=== PATIENT | female | born 2000 | race Caucasian/White ===

== ENCOUNTER → 2020-08-13 09:09 | Outpatient (BNVA) | payer MEDICARE, SELFPAY | PROVIDERS: Visit Provider Obstetrics & Gynecology | DX: Z32.01 Encounter for pregnancy test, result positive (principal) | CPT/HCPCS: 81025 ==

== ENCOUNTER → 2020-08-14 09:58 | Outpatient (BNVA) | payer MEDICARE, SELFPAY | PROVIDERS: Visit Provider Obstetrics & Gynecology | DX: O99.321 Drug use complicating pregnancy, first trimester (principal); F12.90 Cannabis use, unspecified, uncomplicated; A74.9 Chlamydial infection, unspecified; O34.01 Maternal care for unspecified congenital malformation of uterus, first trimester; O34.211 Maternal care for low transverse scar from previous cesarean delivery; O99.341 Other mental disorders complicating pregnancy, first trimester; F41.9 Anxiety disorder, unspecified; F32.9 Major depressive disorder, single episode, unspecified; O99.331 Smoking (tobacco) complicating pregnancy, first trimester; F17.210 Nicotine dependence, cigarettes, uncomplicated; O99.311 Alcohol use complicating pregnancy, first trimester; Z3A.11 11 weeks gestation of pregnancy | CPT/HCPCS: 80053; 84315; 87491; 87591 ==

== ENCOUNTER → 2020-08-16 16:05 | Outpatient (BNVA) | payer MEDICARE, SELFPAY | PROVIDERS: Visit Provider Obstetrics & Gynecology | DX: O99.320 Drug use complicating pregnancy, unspecified trimester (principal); O34.01 Maternal care for unspecified congenital malformation of uterus, first trimester; O34.211 Maternal care for low transverse scar from previous cesarean delivery | CPT/HCPCS: 80307 ==

== ENCOUNTER → 2020-08-27 14:23 | Outpatient (BNVA) | payer MEDICARE, MEDICAID, SELFPAY | PROVIDERS: Visit Provider Obstetrics & Gynecology | DX: O09.90 Supervision of high risk pregnancy, unspecified, unspecified trimester; O99.340 Other mental disorders complicating pregnancy, unspecified trimester; F32.9 Major depressive disorder, single episode, unspecified; O34.211 Maternal care for low transverse scar from previous cesarean delivery; O34.01 Maternal care for unspecified congenital malformation of uterus, first trimester; O98.811 Other maternal infectious and parasitic diseases complicating pregnancy, first trimester; A74.9 Chlamydial infection, unspecified; O99.321 Drug use complicating pregnancy, first trimester; Q51.3 Bicornate uterus; O09.891 Supervision of other high risk pregnancies, first trimester; Z67.91 Unspecified blood type, Rh negative; F12.90 Cannabis use, unspecified, uncomplicated; F10.99 Alcohol use, unspecified with unspecified alcohol-induced disorder; Z3A.13 13 weeks gestation of pregnancy | CPT/HCPCS: 84315; 85027; 86592; 86762; 86803; 86850; 86900; 87340; 87806; 88175 ==

== ENCOUNTER → 2020-10-15 14:46 | Outpatient (BNVA) | payer MEDICARE, MEDICAID, SELFPAY | PROVIDERS: Visit Provider Nurse Practitioner Women's Health | DX: O99.340 Other mental disorders complicating pregnancy, unspecified trimester (principal); O99.320 Drug use complicating pregnancy, unspecified trimester; F32.9 Major depressive disorder, single episode, unspecified; O34.219 Maternal care for unspecified type scar from previous cesarean delivery; O34.01 Maternal care for unspecified congenital malformation of uterus, first trimester; O98.811 Other maternal infectious and parasitic diseases complicating pregnancy, first trimester; A74.9 Chlamydial infection, unspecified; F41.9 Anxiety disorder, unspecified; O26.899 Other specified pregnancy related conditions, unspecified trimester; Z67.91 Unspecified blood type, Rh negative; F12.90 Cannabis use, unspecified, uncomplicated | CPT/HCPCS: 80307; 84315 ==

== ENCOUNTER → 2022-07-16 12:42 | Day surgery (SDC) | payer MEDICARE, MEDICAID, SELFPAY ==
[2022-07-16 14:04] VITALS: BP 136/70; PULSE 85; RESP 18; TEMP 36.4; O2SAT 99
[2022-07-16 14:05] VITALS: BP 136/70; PULSE 85; RESP 18; TEMP 36.4; O2SAT 99
== END ==
PROVIDERS: Visit Provider Family Medicine
DX: Z29.13 Encounter for prophylactic Rho(D) immune globulin (principal)
CPT/HCPCS: 36415; 36430; 86850; 86900; 90384; 96372

== ENCOUNTER 2022-07-29 14:09 | Outpatient (CLI) | payer MEDICARE, MEDICAID, SELFPAY ==
[2022-07-29] VITALS (37 sets, daily range): BP systolic 95–109; BP diastolic 51–59; PULSE 121–164; RESP 18; TEMP 38.1; O2SAT 83–100; BMI 29.0
[2022-07-29] MEDS: acetaminophen 500 mg Tablet 1000 MG PO (15:23)
[2022-07-29] MEDS: lactated ringers 1,000 ML 999 ML IV (15:24)
[2022-07-29 16:31] LABS: Influenza A by IFA Negative (Negative); Influenza B by IFA Negative (Negative); SARS Covid-2 Antigen Positive (Negative)
== END 2022-07-29 17:15 | disposition home or self-care (01) ==
LOC: OPOB 14:10 → OBGYN 14:11
PROVIDERS: Visit Provider Family Medicine
DX: O26.899 Other specified pregnancy related conditions, unspecified trimester (principal); Z3A.00 Weeks of gestation of pregnancy not specified; R06.02 Shortness of breath; R00.2 Palpitations
CPT/HCPCS: 59025; 87426; 87804; 99211

== ENCOUNTER 2022-09-29 04:55 | Inpatient (IN) | payer MEDICARE, MEDICAID, SELFPAY ==
[2022-09-29] VITALS (26 sets, daily range): BP systolic 91–134; BP diastolic 54–82; PULSE 58–99; RESP 17; TEMP 36.8–36.9; O2SAT 99–100; BMI 32.5
[2022-09-29] MEDS: lactated ringers 1,000 ML 999 ML IV (06:20)
[2022-09-29] MEDS: ceFAZolin 2,000 MG in sodium chloride 0.9% (plus) 50 ML 100 MG IV (06:23)
--- NOTE | 2022-09-29 06:23 | P.ANESASSM_ITS ---
Pre-Anesthetic Assessment Height/Weight: Height 1.63 m Weight 86.183 kg Pulse BP O2 Del Method 99 130/72 09/29/22 05:45 09/29/22 05:45 09/29/22 04:55 Preop Diagnosis: Operation Date: 09/29/22 07:00 Proposed Procedures p Section With Tubal(Not Applicable) - Sofía Gutiérrez MD Familial anesthetic complications: With patients first baby she required a unit of blood and baby was breech. No complications with second baby Was Beta Ed taken within 24 hours: N/A Was Clonidine taken within 24 hours: N/A Social Tobacco (Quit smoking 2 years ago. Smoked marijuana until 30 weeks ) and No alcohol Exam alert, oriented x 3, clear to auscultation bilaterally and regular rate & rhythm Airway Submandibular: within normal limits Cervical ROM: within normal limits Mallampati: Class III Dentition: chipped (Right upper chipped, missing lower right) History/ROS No significant history except as noted and No significant complaints Pulmonary None reported CV/HEM None reported Severe kidney infection 2 years ago Hepatic None reported GI Gastroesophageal Reflux Disease ( induced) Metabolic None reported Musc/skel None reported Neuropsych Anxiety, Depression and Neuropathy (Feet numbness at times) Anesthetic Plan ASA status: 2 Anesthesia: Anesthesia Evaluation, General and Regional (specify below) Risk of > 500 ml blood loss (7ml/kg in children): Yes, adequate IV access and fluids planned Medications/Allergies Home Medications Medication Instructions Recorded Confirmed Last Taken Type prenat.vits,bratn,eno-izgf-educm 1 tab PO DAILY 08/14/20 07/16/22 Unknown History sertraline 50 mg tablet (Zoloft) 50 mg PO DAILY #30 tabs 10/15/20 07/16/22 Unknown Rx Allergies Allergy/AdvReac Type Severity Reaction Status Date / Time No Known Allergies Allergy Verified 07/16/22 14:01 [facility] Anesthesia Medical History Anxiety and depression Reports history of anxiety and depression in the past and has been on medication on and off in the past. Currently does not have anyone she follows with. Was taking trazodone and another mood stabilizer prior to the but does not remember the name. No pertinent past medical history Denies diabetes, asthma, hypertension, seizures, DVT/PE PCP: None Surgical History Status post delivery 2018---> primary delivery in [place]. Operative reports have been requested and received---primary low transverse delivery for breech presentation and IUGR. 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 2 layer closure without any extensions Status post myringotomy with tube placement of both ears 2005 Family History Grandfather Colon cancer maternal, diagnosed at age 69 Grandmother Diabetes maternal Hyperlipidemia maternal Hypertension maternal Heart disease maternal Family/Other Stroke maternal great grandfather Uterine cancer maternal great aunt Breast cancer great aunt Ovarian cancer maternal great aunt Denies family history of Thyroid condition Social History Smoking and tobacco status: current every day smoker cigarettes [ Other cigarette details: 3 cigarettes per day] Alcohol intake: never Female Reproductive History : 5 Data Anesthesia Cardiac Studies: No Data to Display
[2022-09-29 06:32] LABS: Basophils # 0.1 10^3/uL (0.0-0.1); Basophils % 0.7 %; Eosinophils # 0.2 10^3/uL (0.0-0.8); Eosinophils % 1.5 %; Hemoglobin 11.3 g/dL (11.5-15.3); Lymphocytes # 2.6 10^3/uL (0.8-4.8); Lymphocytes % 24.8 %; Mean Corpuscular HGB Conc 33.2 g/dL (30.0-36.0); Mean Corpuscular Hemoglobin 28.3 pg (28.0-34.0); Mean Corpuscular Volume 85.2 fl (81-99); Mean Platelet Volume 10.3 fL (7.4-10.4); Monocytes # 0.6 10^3/uL (0.2-0.9); Monocytes % 5.7 %; Neutrophils # 6.81 10^3/uL (1.8-7.7); Neutrophils % 65.9 %; Nucleated Red Blood Cells % 0 %; Platelet Count 222 10^3/cmm (130-400); Red Blood Count 3.99 10^6/uL (4.1-5.3); Red Cell Distribution Width 14.3 % (12.1-15.1); White Blood Count 10.3 10^3/uL (4.0-10.0)
[2022-09-29 06:42] LABS: Amphetamines Screen Urine Negative (Negative); Barbiturates Screen Urine Negative (Negative); Benzodiazepines Screen Urine Negative (Negative); Cocaine Screen Urine Negative (Negative); Opiate Screen Urine Negative (Negative); PCP Screen Urine Negative (Negative); THC Screen Urine Negative (Negative)
[2022-09-29] MEDS: famotidine 20 mg/2 mL INJ IVP (07:02)
[2022-09-29] MEDS: metoclopramide 5 mg/mL SDV 2 mL 10 MG IVP (07:02)
[2022-09-29] MEDS: citric acid-sodium citrate 30 mL UDC PO (07:02)
--- NOTE | 2022-09-29 07:09 | PM.OPHPUD ---
Labor & Delivery H&P Update Date of Procedure: September 29, 2022 Date H&P Performed: 08/27/22 Admission Diagnosis: IUP at 39 weeks 1d gestation Repeat section Desired permanent surgical sterilization Preop diagnosis: Planned procedure: Operation Date: 09/29/22 07:00 Proposed Procedures p Section With Tubal(Not Applicable) - Sofía Gutiérrez MD
--- NOTE | 2022-09-29 08:53 | P.OP_ITS ---
Operative Report Date of procedure: September 29, 2022 Pre-op diagnosis: IUP at 39 weeks 1 day gestation Repeat section Desired permanent surgical sterilization Procedure done: Low transverse section Via Pfannenstiel skin incision Bilateral tubal ligation Specimens removed/disposition: Vertex male weight 3025 g, 6 pounds 11 ounces, Apgars 9 and 9 Pathology: Segments of right and left fallopian tubes Surgeon: Sofía Gutiérrez MD Estimated blood loss (mL): 350 IV fluids (mL): 1,100 Urine output (mL): 100 Complications: None Procedure: After informed consent the patient was taken to the OR where spinal anesthesia was administered. She was prepped and draped in normal sterile fashion in dorsal supine position with a left lateral tilt. After adequate spinal anesthesia was verified a Pfannenstiel skin incision was made through her prior scar and carried through to the underlying layer of fascia sharply. The fascial incision was then extended laterally using the Mayos. The fascia was grasped with [place] clamps and the underlying rectus muscles were dissected off. The peritoneum was entered bluntly using a hemostat. The incision site was manually stretched. The bladder blade was inserted and the vesicouterine peritoneum was identified and entered sharply using the Metzenbaums. Bladder flap was then created digitally. Bladder blade was reinserted. Uterine incision was made in a transverse fashion in the lower uterine segment that was very thin. Amniotic rupture of membranes was performed sharply with clear fluid. The uterine incision was manually stretched. The infant was delivered head first with bulb suction of the mouth and nares at delivery. The cord was clamped and cut and the was handed to the waiting pediatric nurse. Cord blood was obtained. The uterus was palpated to be very heart-shaped and the placenta was delivered using fundal pressure. The uterus was then exteriorized from the abdomen and a dry sponge was used to clear the uterus of clots and debris. The uterine incision was then repaired using 0 chromic in a running locked fashion. A second layer of the same suture was used in an imbricating manner. There was excellent hemostasis. The left fallopian tube was grasped with a [place] and a proximal portion of the tube was ligated and excised. Specimen was sent to pathology. Tubal ostia were visualized. Cut portions of the tube were coagulated using the Bovie. The right fallopian tube was then grasped with a Presley and a proximal portion of the tube was ligated and excised. Tubal ostia were visualized. Segment of the tube was sent to pathology. Cut portions of the tube were coagulated using the Bovie. The uterus was then returned to the abdomen and irrigation was used to clear the gutters of clots and debris. The uterine incision was reinspected for hemostasis. The peritoneum was then reapproximated using 4-0 Vicryl in a running fashion. The fascia was then reapproximated using 0 Vicryl in a running fashion. Subcutaneous tissue was irrigated. The subcutaneous tissue was then reapproximated using 4-0 Vicryl. The skin was then reapproximated using 4-0 Vicryl on a Brett needle. Steri-Strips and a pressure bandage were applied and patient went to recovery in good condition Sponge instrument and needle counts were correct.
--- NOTE | 2022-09-29 13:13 | ANE.PACU2 ---
Inpatient post-anesthesia follow up: Airway intact: Yes Vital signs: Temperature 98.4 F Pulse Rate 73 Respiratory Rate 17 Blood Pressure 116/70 Pulse Oximetry 99 Oxygen Delivery Me thod Room Air Oxygen Flow Rate Fraction of Inspir ed Oxygen Hydration adequate: Yes Nausea and vomiting: No Pain level: 1 Mental status: Baseline
[2022-09-29] MEDS: dextrose 5%-lactated ringers 1,000 ML 125 ML IV (14:05)
[2022-09-29] MEDS: ketorolac 30 mg/mL INJ IVP (14:05)
[2022-09-29] MEDS: ondansetron 2 mg/ML SDV 2 mL 4 MG IVP (17:40)
[2022-09-29] MEDS: docusate sodium 100 mg Capsule PO (17:41)
[2022-09-29] MEDS: HYDROcodone-acetaminophen 5-325 mg Tablet PO (17:41)
[2022-09-30] MEDS: ketorolac 30 mg/mL INJ IVP ×2 (00:27→05:48)
[2022-09-30 01:30] LABS: Hematocrit 25.8 % (37.0-47.0); Hemoglobin 8.6 g/dL (11.5-15.3); Mean Corpuscular HGB Conc 33.3 g/dL (30.0-36.0); Mean Corpuscular Hemoglobin 28.9 pg (28.0-34.0); Mean Corpuscular Volume 86.6 fl (81-99); Mean Platelet Volume 10.4 fL (7.4-10.4); Platelet Count 168 10^3/cmm (130-400); Red Blood Count 2.98 10^6/uL (4.1-5.3); Red Cell Distribution Width 14.4 % (12.1-15.1); White Blood Count 10.2 10^3/uL (4.0-10.0)
[2022-09-30 03:14] VITALS: BP 100/58; PULSE 77; RESP 16; O2SAT 97
[2022-09-30] MEDS: prenatal vitamin Capsule 1 CAP PO (08:53)
[2022-09-30] MEDS: ferrous sulfate EC 325 mg Tablet PO ×2 (08:53→17:16)
[2022-09-30] MEDS: sertraline 50 mg Tablet PO (08:53)
[2022-09-30] MEDS: docusate sodium 100 mg Capsule PO ×2 (08:53→17:16)
[2022-09-30 12:00] VITALS: BP 124/76; PULSE 100; RESP 16; TEMP 36.6; O2SAT 100
[2022-09-30] MEDS: ondansetron 2 mg/ML SDV 2 mL 4 MG IVP (12:35)
--- NOTE | 2022-09-30 12:48 | PM.PN ---
Subjective Subjective: She has been doing well. She has been up and ambulating, passing flatus, has good pain control with oral medication. She just got a little bit nauseated and was given some Zofran. Vitals/I&O/Wt Last Vital Signs Temp 98.3 F 09/29/22 09:30 Pulse 77 09/30/22 03:14 Resp 16 09/30/22 03:14 BP 100/58 09/30/22 03:14 Pulse Ox 97 09/30/22 03:14 O2 Del Method 09/30/22 03:14 09/29/22 09/30/22 09/30/22 22:59 06:59 14:59 Output Total 800 / 1350 700 / 2049 Balance -800 / -1300 -700 / -2000 Weight last 48 hrs Weight 86.183 kg Physical Exam Narrative: Alert and oriented sitting up in bed, heart regular rate and rhythm, lungs clear to auscultation bilaterally, abdomen soft with appropriate postoperative tenderness, fundus is firm and U- 3, incision is clean dry and intact with Steri-Strips in place, extremities have trace edema no calf tenderness Urinary Catheter Management: Romero: Cath Placed During This Visit: yes Reason for Continuing Indwelling Catheter: Perioperative Use in Selected Surgeries Urinary Catheter Date of Insertion: 09/29/22 Urinary Catheter Time of Insertion: 07:48 Data : 09/29/22 23:00 A&P Assessment and plan (1) Status post repeat low transverse section: With bilateral tubal ligation. Patient is doing well. If she continues to do well then likely home tomorrow. Attestations Medical Necessity Statement*: Routine postoperative and care Coding Level of Care Code Acute Hand Coke Drawer for Chg Fwd Diagnoses Status post repeat low transverse section Z98.891
[2022-09-30] MEDS: ibuprofen 800 mg tablet PO ×2 (13:43→20:37)
[2022-09-30 16:00] VITALS: BP 122/69; PULSE 99; RESP 18; TEMP 36.7; O2SAT 99
[2022-09-30] MEDS: simethicone 80 mg Chew PO (21:15)
[2022-09-30 22:00] VITALS: BP 124/86; PULSE 72; RESP 18; TEMP 36.7; O2SAT 98
[2022-10-01 04:10] VITALS: BP 125/75; PULSE 105; RESP 18; TEMP 36.4; O2SAT 100
[2022-10-01] MEDS: HYDROcodone-acetaminophen 5-325 mg Tablet PO ×2 (04:30→12:26)
[2022-10-01] MEDS: ferrous sulfate EC 325 mg Tablet PO (07:58)
[2022-10-01] MEDS: simethicone 80 mg Chew PO (07:58)
[2022-10-01] MEDS: docusate sodium 100 mg Capsule PO (07:58)
[2022-10-01] MEDS: ibuprofen 800 mg tablet PO (07:59)
[2022-10-01] MEDS: prenatal vitamin Capsule 1 CAP PO (07:59)
--- NOTE | 2022-10-01 12:38 | PM.DCS ---
Discharge Providers Date of Admission: 09/29/22 04:55 Date of Discharge: October 01, 2022 Attending Provider at Admission: Sofía Gutiérrez MD Attending Provider at Discharge: Sofía Gutiérrez MD Diagnoses at Discharge Discharge Diagnosis (1) Status post repeat low transverse section: Status: Acute Reason for Visit Reason for Visit: GINGER 10-03-2022/IVP Hospital Course Hospital Course This is a 22-year-old G3 now P3 who is postop day #2 status post repeat section with bilateral tubal ligation. She has done well postoperatively. She is ambulating, tolerating a regular diet, passing flatus and has good pain control. Physical Exam Narrative: Alert and oriented, walking around the room, heart regular rate and rhythm, lungs clear to auscultation bilaterally, abdomen is soft with appropriate postoperative tenderness, incision is clean dry and intact with Steri-Strips in place, extremities have trace edema but no calf tenderness. Urinary Catheter Management: Romero: Cath Placed During This Visit: yes Reason for Continuing Indwelling Catheter: Perioperative Use in Selected Surgeries Urinary Catheter Date of Insertion: 09/29/22 Urinary Catheter Time of Insertion: 07:48 Discharge Data Studies Completed and Pending Completed Studies During Hospitalization Category Date Time Status Pathology: Surgical [PTH] Stat Pth 09/29/22 09:09 Completed Laboratory Results WBC 10.2 10^3/uL (4.0-10.0) H 09/29/22 23:00 RBC 2.98 10^6/uL (4.1-5.3) L 09/29/22 23:00 Hgb 8.6 g/dL (11.5-15.3) L 09/29/22 23:00 Hct 25.8 % (37.0-47.0) L 09/29/22 23:00 MCV 86.6 fl (81-99) 09/29/22 23:00 MCH 28.9 pg (28.0-34.0) 09/29/22 23:00 MCHC 33.3 g/dL (30.0-36.0) 09/29/22 23:00 RDW 14.4 % (12.1-15.1) 09/29/22 23:00 Plt Count 168 10^3/cmm (130-400) 09/29/22 23:00 MPV 10.4 fL (7.4-10.4) 09/29/22 23:00 Neut % (Auto) 65.9 % 09/29/22 06:08 Lymph % (Auto) 24.8 % 09/29/22 06:08 Meeker % (Auto) 5.7 % 09/29/22 06:08 Eos % (Auto) 1.5 % 09/29/22 06:08 Baso % (Auto) 0.7 % 09/29/22 06:08 Neut # (Auto) 6.81 10^3/uL (1.8-7.7) 09/29/22 06:08 Lymph # (Auto) 2.6 10^3/uL (0.8-4.8) 09/29/22 06:08 Meeker # (Auto) 0.6 10^3/uL (0.2-0.9) 09/29/22 06:08 Eos # (Auto) 0.2 10^3/uL (0.0-0.8) 09/29/22 06:08 Baso # (Auto) 0.1 10^3/uL (0.0-0.1) 09/29/22 06:08 Nucleated RBC % (auto) 0 % 09/29/22 06:08 Nucleated RBCs # 0.0 /100WBC 09/29/22 06:08 Urine Opiates Screen Negative ng/mL (Negative) 09/29/22 06:08 Ur Barbiturates Screen Negative ng/mL (Negative) 09/29/22 06:08 Ur Phencyclidine Scrn Negative ng/mL (Negative) 09/29/22 06:08 Ur Amphetamines Screen Negative ng/mL (Negative) 09/29/22 06:08 U Benzodiazepines Scrn Negative ng/mL (Negative) 09/29/22 06:08 Urine Cocaine Screen Negative ng/mL (Negative) 09/29/22 06:08 U Marijuana (THC) Screen Negative ng/mL (Negative) 09/29/22 06:08 Vitals Last Vital Signs Temp 97.6 F 10/01/22 04:10 Pulse 105 H 10/01/22 04:10 Resp 18 10/01/22 04:10 BP 125/75 10/01/22 04:10 Pulse Ox 100 10/01/22 04:10 O2 Del Method 10/01/22 04:10 Discharge Plan Discharge Patient Disposition: Home Condition: Stable Prescriptions: New ibuprofen 800 mg Tablet 800 mg PO TID PRN (Reason: Abdominal Discomfort) Qty: 40 0RF hydrocodone-acetaminophen 5-325 mg Tablet 1 - 2 tab PO Q4H PRN (Reason: Abdominal Pain) Qty: 10 0RF docusate sodium 100 mg Capsule 100 mg PO BID Qty: 60 0RF Continued prenat.vits,brant,wbr-wnpg-xhleo Tablet 1 tab PO DAILY sertraline [Zoloft] 50 mg tablet 50 mg PO DAILY Qty: 30 1RF Discharge Orders: Discharge Order (Routine); Ordered 10/01/22 Ordered By: Sofía Gutiérrez Referrals: Sofía Gutiérrez MD [Physician] - 1-3 days (Wednesday) Discharge Diet: Usual diet Discharge Activity: Limit activity as instructed Patient Instructions: Depression (DC), Bleeding (DC), Preeclampsia and Eclampsia After Delivery (GEN), Tubal Ligation (DC), Hemorrhage (DC), OB - Jorge/Marla, OB Discharge Report, OB Food/Drug Interaction Guide, OB Care at Home, Opioid Safety, OB Home Care Discharge Attestations Time Spent in Discharge Care*: less than 30 min Quality Metrics Clinical Quality Measures [ No reported AMI, CVA or VTE this stay] Coding Level of Care Code Acute Chg FW DC note Diagnoses Status post repeat low transverse section Z98.891
[2022-10-01 13:50] VITALS: BP 110/64; PULSE 79; RESP 15; TEMP 36.8; O2SAT 98
[2022-10-01 13:51] VITALS: BP 110/64; PULSE 79; RESP 15; TEMP 36.8; O2SAT 98
== END 2022-10-01 14:09 | disposition home or self-care (01) | DRG 785 ==
PROVIDERS: Admitting Provider Family Medicine; Visit Provider Family Medicine
PROC: 10D00Z1 Extraction of Products of Conception, Low, Open Approach (ICD-10-PCS; CPT 59514; principal; 2022-09-29 07:00)
DX: O34.211 Maternal care for low transverse scar from previous cesarean delivery (principal); Z3A.39 39 weeks gestation of pregnancy; Z37.0 Single live birth; O99.284 Endocrine, nutritional and metabolic diseases complicating childbirth; E03.9 Hypothyroidism, unspecified; Z30.2 Encounter for sterilization
CPT/HCPCS: 36415; 51702; 59025; 80306; 85025; 85027; 88302; 96374; 96376; 98960; J0690; J1885; J2274; J2370; J2405; J2765; J3010; J3490; J7030; J7120; J7121

== ENCOUNTER 2022-12-19 16:40 | Emergency (ER) | payer MEDICAID, SELFPAY ==
[2022-12-19 16:51] VITALS: BP 118/67; PULSE 130; RESP 18; TEMP 37.7; O2SAT 98
== END 2022-12-19 18:49 | disposition left against medical advice (07) ==
PROVIDERS: Emergency Provider Family Medicine; PCP Family Medicine Adult Medicine
DX: Z53.21 Procedure and treatment not carried out due to patient leaving prior to being seen by health care provider (principal)

== ENCOUNTER → 2024-10-18 13:02 | Outpatient (BNVA) | payer SELFPAY | PROVIDERS: PCP Nurse Practitioner Family; Visit Provider Nurse Practitioner Family | DX: K62.5 Hemorrhage of anus and rectum (principal); R11.0 Nausea; K21.9 Gastro-esophageal reflux disease without esophagitis; K59.00 Constipation, unspecified; R19.7 Diarrhea, unspecified | CPT/HCPCS: 80053; 84443; 85025 ==

== ENCOUNTER → 2024-10-24 12:52 | Outpatient (BNVA) | payer SELFPAY | PROVIDERS: PCP Nurse Practitioner Family; Visit Provider Nurse Practitioner Family | DX: K62.5 Hemorrhage of anus and rectum (principal) | CPT/HCPCS: 82274; 87045; 87427; 87449; 87493 ==

== ENCOUNTER → 2024-10-31 13:35 | Outpatient (BNVA) | payer SELFPAY | PROVIDERS: PCP Nurse Practitioner Family; Visit Provider Nurse Practitioner Family | DX: R71.8 Other abnormality of red blood cells (principal) | CPT/HCPCS: 83550 ==

== ENCOUNTER 2025-10-11 12:29 | Emergency (ER) | payer SELFPAY ==
--- OUTSIDE RECORDS SUMMARY | 2025-10-11 12:34 | XMS_ITS | Clinical Summary ---
Author Organization [employer] Address [address] [facility] Attn: Epic Prelude ADT JW DAN [id number] Care Team Providers Care Public Information Coordinator Name Role Phone Unavailable Primary Care Provider Unavailabl e Allergies No known active allergies Medications VIT-IRON FUM-FOLIC AC ORAL Take by mouth. Active bismuth subsalicylate (PEPTO-BISMOL) 262 mg Tablet, Chewable Take by mouth. Active acetaminophen (TYLENOL) 325 mg tablet Take 1,000 mg by mouth every 4 hours as needed. 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 No 12/17/2023 Comments Unknown Sex and Gender Information Value Date Recorded Sex Assigned at Not on file Legal Sex Female 8:21 PM HEMODIALYSIS RN Gender Identity Not on file Sexual Orientation Not on file Last Filed Vital Signs Vital Sign Reading Time Taken Comments Blood Pressure 117/73 12/17/2023 6:00 PM HEMODIALYSIS RN Pulse 85 12/17/2023 6:00 PM HEMODIALYSIS RN Temperature 36.8 C (98.3 F) 12/17/2023 5:26 PM HEMODIALYSIS RN Respiratory Rate 18 12/17/2023 6:00 PM HEMODIALYSIS RN Oxygen Saturation 100% 12/17/2023 6:00 PM HEMODIALYSIS RN Inhaled Oxygen Concentration - - Weight 84.3 kg (185 lb 12.8 oz) 12/17/2023 5:26 PM HEMODIALYSIS RN Height 162.6 cm (5' 4 ) 12/17/2023 5:26 PM HEMODIALYSIS RN Body Mass Index 31.89 12/17/2023 5:26 PM HEMODIALYSIS RN Plan of Treatment Health Maintenance Due Date Last Done Comments HPV VACCINES (1 - 3-dose series) 2014 DTAP/TDAP/TD VACCINES (1 - Tdap) 2018 HEPATITIS B VACCINES (1 of 3 - 19+ 3-dose series) 04/29 CERVICAL CANCER SCREENING 2020 HPV/Cotest (21-29) 2020 PAP SMEAR 2020 INFLUENZA VACCINE (#1) 2025 Insurance MEDICAID [place]
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
[2025-10-11 12:43] VITALS: BP 104/55; PULSE 72; RESP 18; TEMP 36.6; O2SAT 100
--- NOTE | 2025-10-11 13:19 | ED_ITS ---
HPI - Skin/Abscess/Foreign Bdy 2 General: Chief complaint: Skin/Abscess/Foreign Body Stated complaint: Rash Time Seen by Provider: 10/11/25 13:04 History of Present Illness: 25-year-old female without medical issue s presents ED with pruritus. Patient has itching maculopapular areas with complaints to upper back, left upper leg, mid torso, chest. Face is not involved. This started last p.m. Patient is unsure of what started this. Initially, she was not sure what to do, and took an amoxicillin that was leftover. This has not made it worse. She thinks she could have been exposed to poison kenneth however not sure. No fevers. Mainly the itching symptoms is her complaint with small patches of irritation. Associated symptoms: Deny chills, fever(s), nausea or vomiting Related Data Home Medications ?Medication ?Instructions ?Recorded ?Confirmed prenat.vits,brant,[id number] 1 tab PO DAILY 08/14/20 11/13/24 Previous Rx's ?Medication ?Instructions ?Recorded ibuprofen 800 mg tablet 800 mg PO TID PRN Abdominal 11/25/22 Discomfort #40 tabs loratadine 10 mg tablet 10 mg PO DAILY PRN nose/sinu s 11/25/22 congestion #30 tabs ibuprofen 800 mg tablet 800 mg PO Q8H pain 10 days # 30 tabs 08/17/23 ondansetron HCl 8 mg tablet 8 mg PO Q8H PRN nausea and 12/18/24 vomiting #30 tabs pantoprazole 40 mg tablet,delayed 40 mg PO DAILY #30 t abs 12/18/24 release (Protonix) sertraline 25 mg tablet 25 mg PO DAILY #30 tabs 11/30 0 clobetasol 0.05 % topical cream 1 applic topical BID 1 week #60 10/11/25 grams famotidine 20 mg tablet (Pepcid) 20 mg PO BID 2 weeks #28 tabs 10/11/25 methylprednisolone 4 mg tablets in See Rx Instructions PO .COMPLEX 10/11/25 a dose pack (Medrol (Cheikh)) #21 ea Allergies Allergy/AdvReac Type Severity Reaction Status Date / Time No Known Allergies Allergy Verified 12/18/24 15:06 Review of Systems 2 General: Reports: 10 or more systems reviewed and unremarkable except in HPI and below Const: Denies: fever(s), chills, body aches or change in appetite Eyes: Denies: change in vision, eye discharge or eye redness ENMT: Denies: throat pain, hoarseness, ear or mastoid pain, ear discharge, nasal discharge or nasal congestion Card: Denies: chest pain, palpitations, irregular heart rhythm or edema Resp: Denies: dyspnea, productive cough, non-productive cough or wheezing GI: Denies: abdominal pain, nausea, vomiting, diarrhea, constipation or hematochezia : Denies: difficulty voiding, dysuria, urinary frequency, urinary urgency, urinary hesitancy or hematuria Musc: Denies: joint swelling, joint redness, joint warmth or joint stiffness Skin/Breast: Reports: rash, pruritus, erythema (mild) and skin tenderness (mild); Denies: skin pain, skin swelling or sores Neuro: Denies: headache(s) or numbness in extremities Psych: Denies: suicidal ideation or homicidal ideation Alfredito/Lymph: Denies: enlarged lymph nodes or tender lymph nodes PFSH ED 2 PFSH: Medical History (Updated 10/11/25 @ 13:28 by PRASHANT Blank) 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 Currently does not have anyone she follows with. Was taking trazodone and another mood stabilizer prior to the but does not remember the name. Surgical History Status post repeat low transverse section Previous delivery affecting , antepartum Status post myringotomy with tube placement of both ears 2005 Status post delivery 2018---> primary delivery in [place]. Operative reports have been requested and received---primary low transverse delivery for breech presentation and IUGR. 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 2 layer closure without any extensions Family History Grandfather Colon cancer maternal, diagnosed at age 69 Grandmother Diabetes maternal Hyperlipidemia maternal Hypertension maternal Heart disease maternal Family/Other Stroke maternal great grandfather Uterine cancer maternal great aunt Breast cancer great aunt Ovarian cancer maternal great aunt Denies family history of Thyroid disease Social History Smoking and tobacco/nicotine status: tobacco/nicotine user, details unknown cigarettes [ Other cigarette details: 3 cigarettes per day] Alcohol intake: never Substance/Drug Use: never Physical Exam 2 Const: COMMON NORMALS: no acute distress and patient oriented x3 GENERAL APPEARANCE: cooperative HENMT: COMMON NORMALS: normocephalic, moist oral mucous membranes and oropharynx normal HEAD & SCALP: normocephalic NOSE: No nasal discharge present THROAT: tonsils normal Eye: COMMON NORMALS: Equal, round and reactive pupils present GENERAL EYE: appearance normal, both eyes and all related structures PUPIL: Yes Equal, round and reactive pupils present Neck/C-Spine: GENERAL: Yes normal visual inspection CERVICAL SPINE: Yes cervical ROM normal and No Cervical spine tenderness Lymph: LYMPHATIC: no lymphadenopathy noted Chest: COMMONS NORMALS: normal inspection of the chest Resp: COMMON NORMALS: normal respiratory effort and clear to auscultation bilaterally AUSCULTATION: clear to auscultation bilaterally Cardio: COMMON NORMALS: regular rate, regular rhythm and No murmurs present (Cardio) RATE: regular rate RHYTHM: regular rhythm GI: COMMON NORMALS: Normal to inspection, nondistended, normoactive bowel sounds present, Soft to palpation and non-tender PALPATION: Yes Soft to palpation : COMMON NORMALS: Yes no CVA tenderness BLADDER/KIDNEY EXAM: Yes no CVA tenderness Back/Pelvis: COMMON NORMALS: no CVA tenderness Extremity: GENERAL: No cyanosis and No edema Neuro: COMMON NORMALS: patient oriented x3, moves all extremities, no focal motor deficits and gait normal SPEECH: speech normal Psych: COMMON NORMALS: mental status grossly normal Skin: SKIN IMAGES (FEMALE): 1. Macular papular with minimal excoriation 2. Minimal erythema, macular papular wit hout lymphadenopathy to groin 3. Minimal excoriations 4. Macular papular with minimal erythema 5. Macular papular with excoriation RASHES: rashes noted (See findings above) Course 2 Vital Signs: Vital signs: Vital Signs Temperature 97.8 F 10/11/25 12:43 Pulse Rate 72 10/11/25 12:43 Respiratory Rate 18 10/11/25 12:43 Blood Pressure 104/55 10/11/25 12:43 Pulse Oximetry 100 10/11/25 12:43 Oxygen Delivery Me thod Room Air 10/11/25 12:43 MDM - Skin/Abscess/Foreign Bdy Medicial Decision Making Patient is a 25-year-old female that abrupt onset of urticaria throughout torso legs, and arms. The source is not identified. Discussed concerns of differentials with patient including scabies, and area of left upper leg that has a ringlike appearance. It is less likely tickborne in nature given the multiple areas. This could be contact associated with allergic reaction versus plant dermatitis. All of these was discussed with patient. 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 Patient educated on medications, and also would like the dexamethasone IM prior to being discharged home, due to the ongoing pruritus symptoms. All of her questions answered her satisfaction. Medical Records I reviewed the patient's medical records. No radiology studies performed this visit Discharge Plan Discharge Patient Disposition: Home Clinical Impression: Urticaria Contact dermatitis Qualifiers: Contact dermatitis type: unspecified Contact dermatitis trigger: unspecified trigger Qualified Code(s): L25.9 - Unspecified contact dermatitis, unspecified cause Condition: Stable Prescriptions: New clobetasol 0.05 % cream 1 applic topical BID 7 Days Qty: 60 0RF methylprednisolone [Medrol (Cheikh)] 4 mg tablets,dose pack See Rx Instructions .ROUTE .COMPLEX Qty: 21 0RF Rx Instructions: for 6 days famotidine [Pepcid] 20 mg tablet 20 mg PO BID 14 Days Qty: 28 0RF No Action prenat.vits,brant,[id number] Tablet 1 tab PO DAILY pantoprazole [Protonix] 40 mg tablet,delayed release (DR/EC) 40 mg PO DAILY Qty: 30 2RF ondansetron HCl 8 mg tablet 8 mg PO Q8H PRN (Reason: nausea and vomiting) Qty: 30 2RF sertraline 25 mg tablet 25 mg PO DAILY Qty: 30 2RF loratadine 10 mg tablet 10 mg PO DAILY PRN (Reason: nose/sinus congestion) Qty: 30 0RF ibuprofen 800 mg tablet 800 mg PO TID PRN (Reason: Abdominal Discomfort) Qty: 40 0RF ibuprofen 800 mg tablet 800 mg PO Q8H 10 Days Qty: 30 0RF Discharge Orders: Discharge ED (Routine); Ordered 10/11/25 Ordered By: Kinza Cunningham Referrals: Xochilt Guerrero FNP-C [Primary Care Provider, Family Practice] Discharge Diet: Usual diet Discharge Activity: Resume usual activity Patient Instructions: Contact Dermatitis (ED), Patient Portal & Evan Instructions Activity Restrictions/Additional Instructions: - Famotidine, also called Pepcid, that is a antihistamine was sent to the pharmacy. Take twice daily. - Obtain long-acting antihistamine of choice [id number]: Choices include Claritin, Dorita, Xyzal, Zyrtec. The generic will be next to the name brand and is acceptable. Off label use for allergic reaction includes utilizing twice daily. - Your Medrol Dosepak was sent to the pharmacy. Use as directed. - Clobetasol, steroid cream was sent to the pharmacy. Do not use on your genitals or face. You may otherwise use on areas that are itching. -Benadryl may be obtained for ongoing itching. -Follow-up with your primary care physician. Thank you for choosing [facility] for your healthcare needs today. You have been screened and evaluated and felt safe for discharge. Health conditions do change or evolve sometimes and as such it is important that you follow up with your Primary Doctor to be re checked, 3-5 days is a general good time frame for follow up. You are always welcome to return to the ED for re assessment if your symptoms are worsening or you have new concerns Print Language: Turkmen Coding Level of Care Code ED Cable Way Operator for Tejas Boucher
== END 2025-10-11 13:44 | disposition home or self-care (01) ==
PROVIDERS: Emergency Provider Physician Assistant; PCP Nurse Practitioner Family
DX: L50.9 Urticaria, unspecified (principal); L25.9 Unspecified contact dermatitis, unspecified cause; F17.210 Nicotine dependence, cigarettes, uncomplicated
CPT/HCPCS: 96372; 99284; J1100